=== PATIENT | male | born 1955 | race Caucasian/White ===

== ENCOUNTER 2016-06-21 00:48 | Emergency (ER) | payer OTHER ==
[2016-06-21] MEDS ORDERED: LIDOCAINE 2% MDV 20 ML VIAL As Ordered ONE (01:13)
[2016-06-21] MEDS ORDERED: AUGMENTIN 875 MG TAB As Ordered ONE (01:13)
[2016-06-21] MEDS ORDERED: POLYSPORIN TOPICAL OINTMENT 15GM As Ordered ONE (01:36)
--- NOTE | 2016-06-21 01:56 | EDDOCDS ---
Nurse's Notes [facility] Name: Jayme Roman Age: 60 yrs Sex: Male : 1955 Arrival Date: 06/21/2016 Time: 00:48 Bed I3 / M3 Private MD: Diagnosis: Laceration without foreign body of left thumb without damage to nail Presentation: 06/21 00:52 Presenting complaint: Patient states: laceration to outer aspect of left thumb from lf1 carbide fly-cutter on a [employer] at work. Injury sustained at 0020 this morning at [employer]. Bleeding controlled on scene with direct pressure. Adult Sepsis Screening: The patient does not have new or worsening altered mentation. Patient's respiratory rate is less than 22. Systolic blood pressure is greater than 100. Patient has a qSOFA score of 0- Negative Sepsis Screen. Suicide/Homicide risk assessment- the patient denies having any suicidal and/or homicidal ideations and does not present with any other emotional, behavioral or mental health complaints. Status: Patient is not a director of family service center or dependent. Transition of care: patient was not received from another setting of care. 00:52 Acuity: RITO Level 4 1 00:52 Method Of Arrival: [facility] 00:57 Presenting complaint: Patient states: Pt is on blood thinners. 1 Triage Assessment: 00:57 General: Appears in no apparent distress, Behavior is cooperative. Pain: Location: lf1 palmar aspect of distal phalanx of left thumb and palmar aspect of proximal phalanx of left thumb Pain currently is 8 out of 10 on a pain scale. HIV screening NA for this visit Offered previously. Neurological: Level of Consciousness is awake, alert, Oriented to person, place, time. EENT: No deficits noted. Respiratory: No deficits noted. GI: Denies nausea, vomiting. Derm: laceration to left thumb. Musculoskeletal: No deficits noted. Injury Description: Laceration sustained to palmar aspect of distal phalanx of left thumb and palmar aspect of proximal phalanx of left thumb is clean, 2.6 to 7.5 cm long, not bleeding, was sustained 30-60 minutes ago. is bleeding no active bleeding noted. Historical: - Allergies: IVP dye; - Home Meds: 1. clopidogrel 75 mg oral tab 1 tab once daily (Last dose: 06/20/2016 11:30) 2. gabapentin 300 mg Oral cap 1 cap 3 times per day Takes 1-2 caps 3 times daily as directed 3. glipizide 2.5 mg Oral tr24 1 tabs once daily 4. lansoprazole 30 mg oral cpDR 1 cap once daily 5. lisinopril 20 mg Oral tab 1 tab once daily Takes 1/2 to 1 tablet once daily 6. metformin 500 mg Oral Tb24 2 tabs 2 times per day 7. spironolacton-hydrochlorothiaz 25-25 mg Oral tab 1 tab once daily - PMHx: CAD; Diabetes - NIDDM: controlled; GERD; - PSHx: Stents, Coronary; Carotid surgery; - Social history: Smoking status: Patient states former smoker of tobacco. No barriers to communication noted, The patient speaks fluent Cameroonian, Speaks appropriately for age, Preferred Language: Cameroonian. - Family history: No immediate family members are acutely ill. - : The pt / caregiver states he / she is on anticoagulants: Plavix. Home medication list is obtained from the patient. - Exposure Risk Screening:: None identified. Screenin:01 Screening information is obtained from the patient. Fall risk: No risks identified. lf1 Assistance ADL's: requires no assistance with activities of daily living. Abuse/DV Screen: The patient / caregiver reports he/she is: not in a situation that causes fear, pain or injury. Nutritional screening: On diabetic diet. Advance Directives: Currently, there is a health care proxy, Karely Roman (). There is no active DNR order. There is a living will. home support is adequate. Assessment: 01:16 General: Appears in no apparent distress. Pain: Location: palmar aspect of proximal nn1 phalanx of left thumb and palmar aspect of distal phalanx of left thumb. Neurological: Level of Consciousness is awake, alert, obeys commands. Respiratory: No deficits noted. GI: No deficits noted. Derm: Skin is pink, warm & dry. Laceration to thumb of left hand. Injury Description: Laceration sustained to dorsal aspect of distal phalanx of left thumb is bleeding moderately, is bleeding moderately. 01:18 General: Lidocaine to bedside. . nn1 01:54 General: Appears in no apparent distress, comfortable, Laceration repaired with 5 nn1 sutures, patient has no complaints. Understands discharge instructions to return for suture removal. . Musculoskeletal: Circulation, motion, and sensation intact Capillary refill < 3 seconds Range of motion intact in all extremities. Vital Signs: 00:57 BP 115 / 65; Pulse 78; Resp 18; Temp 98.2(O); Pulse Ox 96% on R/A; Weight 98.88 kg; lf1 Height 5 ft. 10 in. (177.80 cm) (R); Pain 8/10; 00:57 Body Mass Index 31.28 (98.88 kg, 177.80 cm) lf1 Vitals: 00:57 Log In Time: June 21, 2016 at 00:49. 1 ED Course: 00:49 Patient visited by Judy Grey Reg. hs2 00:49 Patient moved to Waiting hs2 00:55 Triage Initiated lf1 00:58 Tito Chi PA-C is PHCP. cc10 00:58 Daniel Helton MD is Attending Physician. cc10 01:02 Patient visited by Zehra Vance RN. lf1 01:03 Patient visited by Tito Chi PA-C. cc10 01:03 Patient visited by Tito Chi PA-C. cc10 01:03 Patient moved to I3 / M3 lf1 01:17 [facility] Payment Agreement was scanned into [employer] and attached to record. pm4 01:53 Assist provider with laceration repair using sutures, Performed by Tito Chi PA-C nn1 Set up tray. Dressed with 4X4s, Kerlix, Patient tolerated well. 5 sutures. 01:53 No IV's were initiated during this patient's visit. nn1 01:54 The patient / caregiver is instructed regarding the plan of care and ED course. nn1 Administered Medications: 01:15 Drug: Lidocaine 10 ml [lidocaine 20 mg/mL (2 %) injection solution (10 mL)] Route: nn1 Infiltration; 01:16 Drug: Amoxicillin-Clavulanate 1 tabs [amoxicillin 875 mg-potassium clavulanate 125 mg nn1 tablet (1 tabs)] Route: PO; Order Results: There are currently no results for this order. Outcome: 01:40 Discharge ordered by Provider. cc10 01:53 Discharge Assessment: Patient awake, alert and oriented x 3. No cognitive and/or nn1 functional deficits noted. Patient verbalized understanding of disposition instructions. patient administered narcotics - no. The following High Risk Discharge criteria are identified: None. Discharged to home ambulatory. Condition: stable Condition: improved. Prescriptions given X 1, Work note provided to patient. No special radiology studies were completed. Property :Personal belongings accompany Pt. 01:55 Patient left the ED. nn1 Signatures: Zehra Vance,RN RN lf1 Tito Chi PA-C PAKirby cc10 Karine JacobRN RN nn1 Judy Grey, Reg Reg hs2 Juwan Graves, Reg Reg pm4 MTDD
--- NOTE | 2016-06-21 01:56 | EDDOCDS ---
Physician Documentation [facility] Name: Jayme Roman Age: 60 yrs Sex: Male : 1955 Arrival Date: 06/21/2016 Time: 00:48 Bed I3 / M3 Private MD: Disposition: 06/21/16 01:40 Discharged to Home/Self Care. Impression: Laceration without foreign body of left thumb without damage to nail. - Condition is Stable. - Discharge Instructions: Sutured Wound Care. - Prescriptions for Augmentin 875- 125 mg Oral Tablet - take 1 tablet by ORAL route every 12 hours for 5 days; 10 tablet. - Medication Reconciliation, Local Pharmacy Hours, Work Release Form - 1 day form. - Follow up: Emergency Department; When: 10 - 14 days; Reason: Staple/Suture removal, Recheck today's complaints, Worsening of conditions, Continuance of care. - Problem is new. - Symptoms have improved. - Notes: Please keep laceration area clean and dry. 5 sutures were placed in your left thumb tonight. Return in 10 days for suture removal. Return sooner for any signs of infection. Historical: - Allergies: IVP dye; - Home Meds: 1. clopidogrel 75 mg oral tab 1 tab once daily (Last dose: 06/20/2016 11:30) 2. gabapentin 300 mg Oral cap 1 cap 3 times per day Takes 1-2 caps 3 times daily as directed 3. glipizide 2.5 mg Oral tr24 1 tabs once daily 4. lansoprazole 30 mg oral cpDR 1 cap once daily 5. lisinopril 20 mg Oral tab 1 tab once daily Takes 1/2 to 1 tablet once daily 6. metformin 500 mg Oral Tb24 2 tabs 2 times per day 7. spironolacton-hydrochlorothiaz 25-25 mg Oral tab 1 tab once daily - PMHx: CAD; Diabetes - NIDDM: controlled; GERD; - PSHx: Stents, Coronary; Carotid surgery; - Social history: Smoking status: Patient states former smoker of tobacco. No barriers to communication noted, The patient speaks fluent Central African, Speaks appropriately for age, Preferred Language: Central African. - Family history: No immediate family members are acutely ill. - : The pt / caregiver states he / she is on anticoagulants: Plavix. Home medication list is obtained from the patient. - Exposure Risk Screening:: None identified. Vital Signs: 06/21 00:57 BP 115 / 65; Pulse 78; Resp 18; Temp 98.2(O); Pulse Ox 96% on R/A; Weight 98.88 kg / lf1 217.99 lbs; Height 5 ft. 10 in. (177.80 cm) (R); Pain 8/10; 00:57 Body Mass Index 31.28 (98.88 kg, 177.80 cm) lf1 Procedures: 01:41 Laceration repair:. cc10 Laceration: 01:41 Wound Repair of 4cm ( 1.6in ) full thickness laceration to lateral aspect of left hand. cc10 Linear shaped.. Skin/tissue flap noted.. Distal neuro/vascular/tendon intact. Anesthesia: Local anesthetic administered with 3 mls of 2% lidocaine. Wound prep: Simple cleansing with betadine by provider, Wound irrigation with saline by provider, Wound explored extensively. Skin closed with 5 x 4-0 Nylon using Simple interrupted sutures. Dressed with Bacitracin, 4x4's, Kerlix. Patient tolerated well. MDM: 01:07 Amoxicillin-Clavulanate 875 mg 1 tabs PO once ordered. cc10 01:07 Lidocaine 20 mg/mL (2 %) 10 ml Infiltration once; to bedside ordered. cc10 01:14 Financial registration complete. pm4 01:17 [facility] Payment Agreement was scanned into [employer] and attached to record. pm4 Administered Medications: 01:15 Drug: Lidocaine 10 ml [lidocaine 20 mg/mL (2 %) injection solution (10 mL)] Route: nn1 Infiltration; 01:16 Drug: Amoxicillin-Clavulanate 1 tabs [amoxicillin 875 mg-potassium clavulanate 125 mg nn1 tablet (1 tabs)] Route: PO; Signatures: Zehra VanceRN RN lf1 Tito Chi PA-C PA-C cc10 Karine Jacob RN RN nn1 Juwan Graves, Reg Reg pm4 The chart was reviewed and I authenticate all verbal orders and agree with the evaluation and treatment provided.Attachments: 01:17 [facility] Payment Agreement pm4 MTDD
--- NOTE | 2016-06-23 02:56 | EDDOCDS ---
Nurse's Notes [facility] Name: Jayme Roman Age: 60 yrs Sex: Male : 1955 Arrival Date: 06/21/2016 Time: 00:48 Bed I3 / M3 Private MD: Diagnosis: Laceration without foreign body of left thumb without damage to nail Presentation: 06/21 00:52 Presenting complaint: Patient states: laceration to outer aspect of left thumb from lf1 carbide fly-cutter on a [place] [employer] at work. Injury sustained at 0020 this morning at [employer]. Bleeding controlled on scene with direct pressure. Adult Sepsis Screening: The patient does not have new or worsening altered mentation. Patient's respiratory rate is less than 22. Systolic blood pressure is greater than 100. Patient has a qSOFA score of 0- Negative Sepsis Screen. Suicide/Homicide risk assessment- the patient denies having any suicidal and/or homicidal ideations and does not present with any other emotional, behavioral or mental health complaints. 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 Transition of care: patient was not received from another setting of care. 00:52 Acuity: RITO Level 4 1 00:52 Method Of Arrival: Walkin/Carried/[facility]std [facility] 00:57 Presenting complaint: Patient states: Pt is on blood thinners. 1 Triage Assessment: 00:57 General: Appears in no apparent distress, Behavior is cooperative. Pain: Location: lf1 palmar aspect of distal phalanx of left thumb and palmar aspect of proximal phalanx of left thumb Pain currently is 8 out of 10 on a pain scale. HIV screening NA for this visit Offered previously. Neurological: Level of Consciousness is awake, alert, Oriented to person, place, time. EENT: No deficits noted. Respiratory: No deficits noted. GI: Denies nausea, vomiting. Derm: laceration to left thumb. Musculoskeletal: No deficits noted. Injury Description: Laceration sustained to palmar aspect of distal phalanx of left thumb and palmar aspect of proximal phalanx of left thumb is clean, 2.6 to 7.5 cm long, not bleeding, was sustained 30-60 minutes ago. is bleeding no active bleeding noted. Historical: - Allergies: IVP dye; - Home Meds: 1. clopidogrel 75 mg oral tab 1 tab once daily (Last dose: 06/20/2016 11:30) 2. gabapentin 300 mg Oral cap 1 cap 3 times per day Takes 1-2 caps 3 times daily as directed 3. glipizide 2.5 mg Oral tr24 1 tabs once daily 4. lansoprazole 30 mg oral cpDR 1 cap once daily 5. lisinopril 20 mg Oral tab 1 tab once daily Takes 1/2 to 1 tablet once daily 6. metformin 500 mg Oral Tb24 2 tabs 2 times per day 7. spironolacton-hydrochlorothiaz 25-25 mg Oral tab 1 tab once daily - PMHx: CAD; Diabetes - NIDDM: controlled; GERD; - PSHx: Stents, Coronary; Carotid surgery; - Social history: Smoking status: Patient states former smoker of tobacco. No barriers to communication noted, The patient speaks fluent Bruneian, Speaks appropriately for age, Preferred Language: Bruneian. - Family history: No immediate family members are acutely ill. - : The pt / caregiver states he / she is on anticoagulants: Plavix. Home medication list is obtained from the patient. - Exposure Risk Screening:: None identified. Screenin:01 Screening information is obtained from the patient. Fall risk: No risks identified. lf1 Assistance ADL's: requires no assistance with activities of daily living. Abuse/DV Screen: The patient / caregiver reports he/she is: not in a situation that causes fear, pain or injury. Nutritional screening: On diabetic diet. Advance Directives: Currently, there is a health care proxy, Karely Roman (). There is no active DNR order. There is a living will. home support is adequate. Assessment: 01:16 General: Appears in no apparent distress. Pain: Location: palmar aspect of proximal nn1 phalanx of left thumb and palmar aspect of distal phalanx of left thumb. Neurological: Level of Consciousness is awake, alert, obeys commands. Respiratory: No deficits noted. GI: No deficits noted. Derm: Skin is pink, warm & dry. Laceration to thumb of left hand. Injury Description: Laceration sustained to dorsal aspect of distal phalanx of left thumb is bleeding moderately, is bleeding moderately. 01:18 General: Lidocaine to bedside. . nn1 01:54 General: Appears in no apparent distress, comfortable, Laceration repaired with 5 nn1 sutures, patient has no complaints. Understands discharge instructions to return for suture removal. . Musculoskeletal: Circulation, motion, and sensation intact Capillary refill < 3 seconds Range of motion intact in all extremities. Vital Signs: 00:57 BP 115 / 65; Pulse 78; Resp 18; Temp 98.2(O); Pulse Ox 96% on R/A; Weight 98.88 kg; lf1 Height 5 ft. 10 in. (177.80 cm) (R); Pain 8/10; 00:57 Body Mass Index 31.28 (98.88 kg, 177.80 cm) lf1 Vitals: 00:57 Log In Time: June 21, 2016 at 00:49. lf1 ED Course: 00:49 Patient visited by Judy Grey Reg. hs2 00:49 Patient moved to Waiting hs2 00:55 Triage Initiated lf1 00:58 Tito Chi PA-C is PHCP. cc10 00:58 Daniel Helton MD is Attending Physician. cc10 01:02 Patient visited by Zehra Vance RN. lf1 01:03 Patient visited by Tito Chi PA-C. cc10 01:03 Patient visited by Tito Chi PA-C. cc10 01:03 Patient moved to I3 / M3 lf1 01:17 [facility] Payment Agreement was scanned into [employer] and attached to record. pm4 01:53 Assist provider with laceration repair using sutures, Performed by Tito Chi PA-C nn1 Set up tray. Dressed with 4X4s, Kerlix, Patient tolerated well. 5 sutures. 01:53 No IV's were initiated during this patient's visit. nn1 01:54 The patient / caregiver is instructed regarding the plan of care and ED course. nn1 02:19 T-Sheet-- Draft Copy was scanned into [employer] and attached to record. hs2 Administered Medications: 01:15 Drug: Lidocaine 10 ml [lidocaine 20 mg/mL (2 %) injection solution (10 mL)] Route: nn1 Infiltration; 01:16 Drug: Amoxicillin-Clavulanate 1 tabs [amoxicillin 875 mg-potassium clavulanate 125 mg nn1 tablet (1 tabs)] Route: PO; Order Results: There are currently no results for this order. Outcome: 01:40 Discharge ordered by Provider. cc10 01:53 Discharge Assessment: Patient awake, alert and oriented x 3. No cognitive and/or nn1 functional deficits noted. Patient verbalized understanding of disposition instructions. patient administered narcotics - no. The following High Risk Discharge criteria are identified: None. Discharged to home ambulatory. Condition: stable Condition: improved. Prescriptions given X 1, Work note provided to patient. No special radiology studies were completed. Property :Personal belongings accompany Pt. 01:55 Patient left the ED. nn1 Signatures: Zehra Vance,RN RN lf1 Tito Chi, PASuleimanC PA-C cc10 Karine JacobRN RN nn1 Judy Grey, Reg Reg hs2 Juwan Graves, Reg Reg pm4 Chart Complete MTDD
--- NOTE | 2016-06-23 02:56 | EDDOCDS ---
Physician Documentation [facility] Name: Jayme Roman Age: 60 yrs Sex: Male : 1955 Arrival Date: 06/21/2016 Time: 00:48 Bed I3 / M3 Private MD: Disposition: 06/21/16 01:40 Discharged to Home/Self Care. Impression: Laceration without foreign body of left thumb without damage to nail. - Condition is Stable. - Discharge Instructions: Sutured Wound Care. - Prescriptions for Augmentin 875- 125 mg Oral Tablet - take 1 tablet by ORAL route every 12 hours for 5 days; 10 tablet. - Medication Reconciliation, Local Pharmacy Hours, Work Release Form - 1 day form. - Follow up: Emergency Department; When: 10 - 14 days; Reason: Staple/Suture removal, Recheck today's complaints, Worsening of conditions, Continuance of care. - Problem is new. - Symptoms have improved. - Notes: Please keep laceration area clean and dry. 5 sutures were placed in your left thumb tonight. Return in 10 days for suture removal. Return sooner for any signs of infection. Historical: - Allergies: IVP dye; - Home Meds: 1. clopidogrel 75 mg oral tab 1 tab once daily (Last dose: 06/20/2016 11:30) 2. gabapentin 300 mg Oral cap 1 cap 3 times per day Takes 1-2 caps 3 times daily as directed 3. glipizide 2.5 mg Oral tr24 1 tabs once daily 4. lansoprazole 30 mg oral cpDR 1 cap once daily 5. lisinopril 20 mg Oral tab 1 tab once daily Takes 1/2 to 1 tablet once daily 6. metformin 500 mg Oral Tb24 2 tabs 2 times per day 7. spironolacton-hydrochlorothiaz 25-25 mg Oral tab 1 tab once daily - PMHx: CAD; Diabetes - NIDDM: controlled; GERD; - PSHx: Stents, Coronary; Carotid surgery; - Social history: Smoking status: Patient states former smoker of tobacco. No barriers to communication noted, The patient speaks fluent Tunisian, Speaks appropriately for age, Preferred Language: Tunisian. - Family history: No immediate family members are acutely ill. - : The pt / caregiver states he / she is on anticoagulants: Plavix. Home medication list is obtained from the patient. - Exposure Risk Screening:: None identified. Vital Signs: 06/21 00:57 BP 115 / 65; Pulse 78; Resp 18; Temp 98.2(O); Pulse Ox 96% on R/A; Weight 98.88 kg / lf1 217.99 lbs; Height 5 ft. 10 in. (177.80 cm) (R); Pain 8/10; 00:57 Body Mass Index 31.28 (98.88 kg, 177.80 cm) lf1 Procedures: 01:41 Laceration repair:. cc10 Laceration: 01:41 Wound Repair of 4cm ( 1.6in ) full thickness laceration to lateral aspect of left hand. cc10 Linear shaped.. Skin/tissue flap noted.. Distal neuro/vascular/tendon intact. Anesthesia: Local anesthetic administered with 3 mls of 2% lidocaine. Wound prep: Simple cleansing with betadine by provider, Wound irrigation with saline by provider, Wound explored extensively. Skin closed with 5 x 4-0 Nylon using Simple interrupted sutures. Dressed with Bacitracin, 4x4's, Kerlix. Patient tolerated well. MDM: 01:07 Amoxicillin-Clavulanate 875 mg 1 tabs PO once ordered. cc10 01:07 Lidocaine 20 mg/mL (2 %) 10 ml Infiltration once; to bedside ordered. cc10 01:14 Financial registration complete. pm4 01:17 [facility] Payment Agreement was scanned into [employer] and attached to record. pm4 02:19 T-Sheet-- Draft Copy was scanned into [employer] and attached to record. hs2 Administered Medications: 01:15 Drug: Lidocaine 10 ml [lidocaine 20 mg/mL (2 %) injection solution (10 mL)] Route: nn1 Infiltration; 01:16 Drug: Amoxicillin-Clavulanate 1 tabs [amoxicillin 875 mg-potassium clavulanate 125 mg nn1 tablet (1 tabs)] Route: PO; Signatures: Zehra Vance RN RN lf1 Tito Chi PA-C PA-C cc10 Karine Jacob RN RN nn1 Judy Grey, Reg Reg hs2 Juwan Graves, Reg Reg pm4 The chart was reviewed and I authenticate all verbal orders and agree with the evaluation and treatment provided.Attachments: 01:17 [facility] Payment Agreement pm4 02:19 T-Sheet-- Draft Copy hs2 Chart Complete MTDD
--- NOTE | 2016-06-23 02:56 | EDDOCDS ---
Physician Documentation [facility] Name: Jayme Roman Age: 60 yrs Sex: Male : 1955 Arrival Date: 06/21/2016 Time: 00:48 Bed I3 / M3 Private MD: Disposition: 06/21/16 01:40 Discharged to Home/Self Care. Impression: Laceration without foreign body of left thumb without damage to nail. - Condition is Stable. - Discharge Instructions: Sutured Wound Care. - Prescriptions for Augmentin 875- 125 mg Oral Tablet - take 1 tablet by ORAL route every 12 hours for 5 days; 10 tablet. - Medication Reconciliation, Local Pharmacy Hours, Work Release Form - 1 day form. - Follow up: Emergency Department; When: 10 - 14 days; Reason: Staple/Suture removal, Recheck today's complaints, Worsening of conditions, Continuance of care. - Problem is new. - Symptoms have improved. - Notes: Please keep laceration area clean and dry. 5 sutures were placed in your left thumb tonight. Return in 10 days for suture removal. Return sooner for any signs of infection. Historical: - Allergies: IVP dye; - Home Meds: 1. clopidogrel 75 mg oral tab 1 tab once daily (Last dose: 06/20/2016 11:30) 2. gabapentin 300 mg Oral cap 1 cap 3 times per day Takes 1-2 caps 3 times daily as directed 3. glipizide 2.5 mg Oral tr24 1 tabs once daily 4. lansoprazole 30 mg oral cpDR 1 cap once daily 5. lisinopril 20 mg Oral tab 1 tab once daily Takes 1/2 to 1 tablet once daily 6. metformin 500 mg Oral Tb24 2 tabs 2 times per day 7. spironolacton-hydrochlorothiaz 25-25 mg Oral tab 1 tab once daily - PMHx: CAD; Diabetes - NIDDM: controlled; GERD; - PSHx: Stents, Coronary; Carotid surgery; - Social history: Smoking status: Patient states former smoker of tobacco. No barriers to communication noted, The patient speaks fluent Nigerian, Speaks appropriately for age, Preferred Language: Nigerian. - Family history: No immediate family members are acutely ill. - : The pt / caregiver states he / she is on anticoagulants: Plavix. Home medication list is obtained from the patient. - Exposure Risk Screening:: None identified. Vital Signs: 06/21 00:57 BP 115 / 65; Pulse 78; Resp 18; Temp 98.2(O); Pulse Ox 96% on R/A; Weight 98.88 kg / lf1 217.99 lbs; Height 5 ft. 10 in. (177.80 cm) (R); Pain 8/10; 00:57 Body Mass Index 31.28 (98.88 kg, 177.80 cm) lf1 Procedures: 01:41 Laceration repair:. cc10 Laceration: 01:41 Wound Repair of 4cm ( 1.6in ) full thickness laceration to lateral aspect of left hand. cc10 Linear shaped.. Skin/tissue flap noted.. Distal neuro/vascular/tendon intact. Anesthesia: Local anesthetic administered with 3 mls of 2% lidocaine. Wound prep: Simple cleansing with betadine by provider, Wound irrigation with saline by provider, Wound explored extensively. Skin closed with 5 x 4-0 Nylon using Simple interrupted sutures. Dressed with Bacitracin, 4x4's, Kerlix. Patient tolerated well. MDM: 01:07 Amoxicillin-Clavulanate 875 mg 1 tabs PO once ordered. cc10 01:07 Lidocaine 20 mg/mL (2 %) 10 ml Infiltration once; to bedside ordered. cc10 01:14 Financial registration complete. pm4 01:17 [facility] Payment Agreement was scanned into [employer] and attached to record. pm4 02:19 T-Sheet-- Draft Copy was scanned into [employer] and attached to record. hs2 Administered Medications: 01:15 Drug: Lidocaine 10 ml [lidocaine 20 mg/mL (2 %) injection solution (10 mL)] Route: nn1 Infiltration; 01:16 Drug: Amoxicillin-Clavulanate 1 tabs [amoxicillin 875 mg-potassium clavulanate 125 mg nn1 tablet (1 tabs)] Route: PO; Signatures: Zehra Vance RN RN lf1 Tito Chi PA-C PA-C cc10 Karine Jacob RN RN nn1 Judy Grey, Reg Reg hs2 Juwan Graves, Reg Reg pm4 The chart was reviewed and I authenticate all verbal orders and agree with the evaluation and treatment provided.Attachments: 01:17 [facility] Payment Agreement pm4 02:19 T-Sheet-- Draft Copy hs2 Chart Complete MTDD
== END 2016-06-21 01:55 | disposition home or self-care (01) ==
LOC: M ED 00:48
DX: S61.012A Laceration without foreign body of left thumb without damage to nail, initial encounter (principal); W31.9XXA Contact with unspecified machinery, initial encounter; Y92.63 Factory as the place of occurrence of the external cause; Y93.89 Activity, other specified; Y99.0 Civilian activity done for income or pay; E11.9 Type 2 diabetes mellitus without complications; I10 Essential (primary) hypertension; I25.2 Old myocardial infarction; K21.9 Gastro-esophageal reflux disease without esophagitis; Z79.899 Other long term (current) drug therapy; Z79.84 Long term (current) use of oral hypoglycemic drugs; Z91.041 Radiographic dye allergy status; Z79.01 Long term (current) use of anticoagulants; Z87.891 Personal history of nicotine dependence

== ENCOUNTER → 2016-06-22 | Outpatient (REF) | payer OTHER ==
[2016-06-22 14:07] LABS: ALBUMIN/GLOBULIN RATIO 1.14 (1.00-1.93); ALKALINE PHOSPHATASE 85 U/L (45-117); ALT/SGPT 31 U/L (12-78); ANION GAP 9 MEQ/L (8-16); AST/SGOT 14 U/L (15-37); BILIRUBIN,TOTAL 0.3 MG/DL (0.2-1.0); BLOOD UREA NITROGEN 26 MG/DL (7-18); CALCIUM LEVEL 9.1 MG/DL (8.5-10.1); CARBON DIOXIDE LEVEL 25 MEQ/L (21-32); CHLORIDE LEVEL 109 MEQ/L (98-107); CHOLESTEROL LEVEL 248 MG/DL (<200); CREATININE FOR GFR 1.01 MG/DL (0.70-1.30); GLOMERULAR FILTRATION RATE > 60.0 (>56); GLUCOSE, FASTING 81 MG/DL (70-105); POTASSIUM SERUM 4.6 MEQ/L (3.5-5.1); SODIUM LEVEL 143 MEQ/L (136-145); TOTAL PROTEIN 7.5 GM/DL (6.4-8.2); TRIGLYCERIDES LEVEL 347 MG/DL (<150)
== END ==
LOC: M SFHCPLAZ 12:12
PROVIDERS: ATTEND Family Medicine
DX: I10 Essential (primary) hypertension (principal); E11.9 Type 2 diabetes mellitus without complications; S06.9X9S Unspecified intracranial injury with loss of consciousness of unspecified duration, sequela; E78.5 Hyperlipidemia, unspecified; X58.XXXS Exposure to other specified factors, sequela; Y92.89 Other specified places as the place of occurrence of the external cause; Y93.89 Activity, other specified; Y99.8 Other external cause status

== ENCOUNTER → 2016-07-12 | Outpatient (REF) | payer OTHER | LOC: M LAB REF 08:52 | PROVIDERS: ATTEND Physician Assistant | DX: N39.0 Urinary tract infection, site not specified (principal) ==

== ENCOUNTER → 2016-07-24 | Outpatient (REF) | payer OTHER | LOC: M SFHCPLAZ 12:06 | PROVIDERS: ATTEND Family Medicine | DX: R10.2 Pelvic and perineal pain (principal) ==

== ENCOUNTER → 2016-08-24 | Outpatient (REF) | payer OTHER ==
[2016-08-24 18:39] LABS: BASO % 0.4 % (0.0-1.0); EOS # 0.2 K/mm3 (0.0-0.50); EOS % 2.4 % (0.0-3.0); LARGE UNSTAINED CELL # 0.1 K/mm3 (0.0-0.4); LARGE UNSTAINED CELL % 1.2 % (0.0-4.0); LYMPH # 1.4 K/mm3 (1.5-4.5); LYMPH % 17.5 % (24.0-44.0); MEAN CORPUSCULAR HGB CONC 33.3 g/dl (32.0-36.5); MEAN CORPUSCULAR VOLUME 96.1 fl (80.0-96.0); MONO # 0.6 K/mm3 (0.0-0.8); MONO % 7.4 % (0.0-5.0); NEUTROPHILS # 5.4 K/mm3 (1.8-7.7); NEUTROPHILS % 71.1 % (36.0-66.0); PLATELET COUNT, AUTOMATED 213 k/mm3 (150-450); RED CELL DISTRIBUTION WIDTH 13.5 % (11.5-14.5); WHITE BLOOD COUNT 7.6 K/mm3 (4.0-10.0)
== END ==
LOC: M SFHCPLAZ 15:21
PROVIDERS: ATTEND Family Medicine
DX: M10.9 Gout, unspecified (principal)

== ENCOUNTER → 2016-08-28 | Outpatient (CLI) | payer OTHER ==
--- NOTE | 2016-08-28 12:47 | REP ---
Left foot four views: There are no comparisons. 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 There is soft tissue edema adjacent to the great toe MTP articulation. Mineralization and joint spaces are otherwise unremarkable. There is a calcaneal plantar spur. There are no other calcifications or foreign bodies. Signed by Gavino Wellington MD 08/28/2016 12:38 P
== END ==
LOC: M ADAMS 11:23
PROVIDERS: ATTEND Family Medicine
DX: M10.9 Gout, unspecified (principal)

== ENCOUNTER → 2016-09-27 | Outpatient (REF) | payer OTHER ==
[2016-09-27 16:27] LABS: ANION GAP 6 MEQ/L (8-16); BLOOD UREA NITROGEN 18 MG/DL (7-18); CALCIUM LEVEL 8.7 MG/DL (8.5-10.1); CARBON DIOXIDE LEVEL 26 MEQ/L (21-32); CHLORIDE LEVEL 109 MEQ/L (98-107); CREATININE FOR GFR 1.03 MG/DL (0.70-1.30); GLOMERULAR FILTRATION RATE > 60.0 (>56); GLUCOSE, FASTING 161 MG/DL (70-105); POTASSIUM SERUM 4.4 MEQ/L (3.5-5.1); SODIUM LEVEL 141 MEQ/L (136-145)
[2016-09-29 11:19] LABS: HEP C VIRUS AB SCREEN MEDICARE 0.1 INDEX (<0.8)
== END ==
LOC: M SFHCPLAZ 13:48
PROVIDERS: ATTEND Family Medicine
DX: E11.9 Type 2 diabetes mellitus without complications (principal); I10 Essential (primary) hypertension; M10.9 Gout, unspecified; Z11.59 Encounter for screening for other viral diseases
CPT/HCPCS: 36415; 80048; 83036; 84550; G0472

== ENCOUNTER → 2016-10-09 | Outpatient (REF) | payer OTHER | LOC: M LABDRAW1 13:18 → M LABDRAWP 13:18 | PROVIDERS: ATTEND Urology | DX: R97.20 Elevated prostate specific antigen [PSA] (principal) ==

== ENCOUNTER → 2017-02-21 | Outpatient (CLI) | payer OTHER ==
[2017-02-21 20:39] LABS: BASO % 0.3 % (0.0-1.0); EOS % 0.3 % (0.0-3.0); IMMATURE GRANULOCYTE % 0.7 % (0-0); LYMPH % 13.4 % (24.0-44.0); MEAN CORPUSCULAR HEMOGLOBIN 32.4 pg (27.0-33.0); MEAN CORPUSCULAR HGB CONC 33.5 g/dl (32.0-36.5); MEAN CORPUSCULAR VOLUME 96.8 fl (80.0-96.0); MONO # 1.1 10^3/uL (0.0-0.8); MONO % 15.1 % (0.0-5.0); NEUTROPHILS # 5.1 10^3/uL (1.8-7.7); NEUTROPHILS % 70.2 % (36.0-66.0); PLATELET COUNT, AUTOMATED 143 10^3/uL (150-450); RED CELL DISTRIBUTION WIDTH 13.4 % (11.5-14.5); WHITE BLOOD COUNT 7.2 10^3/uL (4.0-10.0)
[2017-02-21 21:12] LABS: ADD MORPHOLOGY? NO
--- NOTE | 2017-02-22 07:17 | REP ---
Clinical: Acute bronchitis . Comparison: 04/20/2008 . Technique: PA and lateral. Findings: The mediastinum and cardiac silhouette are normal. The lung merino demonstrate increased coarsened markings likely chronic in nature without acute consolidation, effusion, or pneumothorax. The skeletal structures are intact and normal. Impression: 1. Chronic increased coarsened interstitial markings. 2. No focal consolidation. Signed by Jose Eduardo Ogden MD 02/22/2017 07:09 A
== END ==
LOC: M ADAMS 16:22
PROVIDERS: ATTEND Physician Assistant Medical
DX: J20.9 Acute bronchitis, unspecified (principal)

== ENCOUNTER → 2017-04-30 | Outpatient (REF) | payer OTHER | LOC: M LABDRAWP 15:30 | PROVIDERS: ATTEND Urology | DX: R97.20 Elevated prostate specific antigen [PSA] (principal) ==

== ENCOUNTER → 2017-05-14 | Outpatient (REF) | payer OTHER ==
[2017-05-14 18:53] LABS: ANION GAP 9 MEQ/L (8-16); BLOOD UREA NITROGEN 30 MG/DL (7-18); CALCIUM LEVEL 9.9 MG/DL (8.8-10.2); CARBON DIOXIDE LEVEL 25 MEQ/L (21-32); CHLORIDE LEVEL 104 MEQ/L (98-107); CREATININE FOR GFR 1.02 MG/DL (0.70-1.30); GLOMERULAR FILTRATION RATE > 60.0 (>49); GLUCOSE, FASTING 127 MG/DL (80-110); SODIUM LEVEL 138 MEQ/L (136-145)
== END ==
LOC: M SFHCPLAZ 14:41
PROVIDERS: ATTEND Family Medicine
DX: E11.9 Type 2 diabetes mellitus without complications (principal); I10 Essential (primary) hypertension

== ENCOUNTER 2017-08-10 22:48 | Emergency (ER) | payer OTHER | END 2017-08-10 23:49 | disposition home or self-care (01) | LOC: M ED 22:48 | DX: S61.001A Unspecified open wound of right thumb without damage to nail, initial encounter (principal); W45.8XXA Other foreign body or object entering through skin, initial encounter; Y92.59 Other trade areas as the place of occurrence of the external cause; Y99.0 Civilian activity done for income or pay; Z79.01 Long term (current) use of anticoagulants; Z79.899 Other long term (current) drug therapy; Z79.84 Long term (current) use of oral hypoglycemic drugs; Z87.891 Personal history of nicotine dependence; Z91.041 Radiographic dye allergy status | CPT/HCPCS: 99283 ==

== ENCOUNTER → 2017-12-03 | Outpatient (REF) | payer OTHER ==
[2017-12-03 12:53] LABS: CHOLESTEROL LEVEL 225 MG/DL (<200); HDL CHOLESTEROL 36 MG/DL (>40); LDL CHOLESTEROL 132.8 MG/DL (<100); NON-HDL-C 189 MG/DL; TRIGLYCERIDES LEVEL 281 MG/DL (<150)
[2017-12-03 13:11] LABS: MALB URINE SIEMENS 17.2 MG/L; MAU/CREAT RATIO 11.3 MCG/MG (0.0-30.0)
[2017-12-03 13:35] LABS: ESTIMATED AVERAGE GLUCOSE 157 MG/DL (60-110); HEMOGLOBIN A1c 7.1 %
== END ==
LOC: M SFHCPLAZ 07:50
DX: E11.9 Type 2 diabetes mellitus without complications (principal); E78.5 Hyperlipidemia, unspecified

== ENCOUNTER → 2018-01-09 | Outpatient (REF) | payer OTHER ==
[2018-01-09 13:03] LABS: ANION GAP 11 MEQ/L (8-16); BLOOD UREA NITROGEN 29 MG/DL (7-18); CALCIUM LEVEL 9.2 MG/DL (8.8-10.2); CARBON DIOXIDE LEVEL 23 MEQ/L (21-32); CHLORIDE LEVEL 108 MEQ/L (98-107); CREATININE FOR GFR 1.07 MG/DL (0.70-1.30); GLOMERULAR FILTRATION RATE > 60.0 (>49); GLUCOSE, FASTING 122 MG/DL (70-100); POTASSIUM SERUM 4.5 MEQ/L (3.5-5.1); SODIUM LEVEL 142 MEQ/L (136-145)
== END ==
LOC: M SFHCADAM 10:34
DX: I10 Essential (primary) hypertension (principal)

== ENCOUNTER → 2018-01-14 | Outpatient (CLI) | payer OTHER ==
[~2018-01-14] MED LIST: PROHANCE 279.3MG/ML 15ML VIAL (A9576) As Ordered; PROHANCE 279.3MG/ML 5ML VIAL (A9576) As Ordered
== END ==
LOC: M RAD 14:26
DX: R42 Dizziness and giddiness (principal); I67.82 Cerebral ischemia
CPT/HCPCS: A9576

== ENCOUNTER 2018-04-22 07:23 | Day surgery (SDC) | payer OTHER ==
[~2018-04-22 07:23] MED LIST changes: +LIDOCAINE 2% INJ 100 MG/5 ML SDV (FOR ANES.) As Ordered; -PROHANCE 279.3MG/ML 15ML VIAL (A9576) As Ordered; -PROHANCE 279.3MG/ML 5ML VIAL (A9576) As Ordered; +PROPOFOL 200 MG/20 ML VIAL As Ordered
[2018-04-22] MEDS: NS 1,000 ML IV (07:41)
[2018-04-22] MEDS ORDERED: PROPOFOL 200 MG/20 ML VIAL As Ordered (09:19)
== END 2018-04-22 10:04 | disposition home or self-care (01) ==
LOC: M OPP 07:23
DX: Z12.11 Encounter for screening for malignant neoplasm of colon (principal); K64.0 First degree hemorrhoids; K57.30 Diverticulosis of large intestine without perforation or abscess without bleeding; R19.7 Diarrhea, unspecified; R12 Heartburn; K22.8 Other specified diseases of esophagus; I10 Essential (primary) hypertension; I25.10 Atherosclerotic heart disease of native coronary artery without angina pectoris; I65.29 Occlusion and stenosis of unspecified carotid artery; F33.9 Major depressive disorder, recurrent, unspecified; F41.9 Anxiety disorder, unspecified; M19.90 Unspecified osteoarthritis, unspecified site; Z86.010 Personal history of colon polyps; Z79.84 Long term (current) use of oral hypoglycemic drugs; Z79.899 Other long term (current) drug therapy; Z86.19 Personal history of other infectious and parasitic diseases; Z91.041 Radiographic dye allergy status; Z86.73 Personal history of transient ischemic attack (TIA), and cerebral infarction without residual deficits
CPT/HCPCS: 45380

== ENCOUNTER → 2018-06-11 | Outpatient (REF) | payer OTHER ==
[~2018-06-11] MED LIST changes: +ALLE180T33 PO; +ALLO100T; +BACI500O8 TOP; +CLOP75TA2; +FENASTERIDE PO; +GABA-843; +GLIP-163; +GLIP2.5T6; +LANS30CA; -LIDOCAINE 2% INJ 100 MG/5 ML SDV (FOR ANES.) As Ordered; +LISI-672; +METF500T4; +PRAV40TA2 PO; -PROPOFOL 200 MG/20 ML VIAL As Ordered; +SERT-138; +TAMSULOSIN
[2018-06-11 15:49] LABS: HEMATOCRIT 40.6 % (42.0-52.0); HEMOGLOBIN 13.5 g/dl (13.5-17.5); MEAN CORPUSCULAR HEMOGLOBIN 31.5 pg (27.0-33.0); MEAN CORPUSCULAR HGB CONC 33.3 g/dl (32.0-36.5); MEAN CORPUSCULAR VOLUME 94.6 fl (80.0-96.0); PLATELET COUNT, AUTOMATED 187 10^3/uL (150-450); RED BLOOD COUNT 4.29 10^6/uL (4.30-6.10)
[2018-06-11 16:14] LABS: HEMOGLOBIN A1c 6.7 %
[2018-06-11 16:26] LABS: ALBUMIN 4.1 GM/DL (3.2-5.2); ALT/SGPT 36 U/L (12-78); BILIRUBIN,TOTAL 0.5 MG/DL (0.2-1.0); BLOOD UREA NITROGEN 29 MG/DL (7-18); CALCIUM LEVEL 9.1 MG/DL (8.8-10.2); CARBON DIOXIDE LEVEL 24 MEQ/L (21-32); CHLORIDE LEVEL 106 MEQ/L (98-107); CREATININE FOR GFR 1.06 MG/DL (0.70-1.30); GLOMERULAR FILTRATION RATE > 60.0 (>49); GLUCOSE, FASTING 93 MG/DL (70-100); POTASSIUM SERUM 4.4 MEQ/L (3.5-5.1); SODIUM LEVEL 141 MEQ/L (136-145); THYROID STIMULATING HORMONE 0.598 uIU/ML (0.358-3.740); TOTAL PROTEIN 7.5 GM/DL (6.4-8.2)
[2018-06-11 16:54] LABS: TOTAL 25(OH) VITAMIN D 19.1 NG/ML (30.0-100.0)
== END ==
LOC: M SFHCPLAZ 14:34
PROVIDERS: ATTEND Family Medicine
DX: R53.83 Other fatigue (principal); E11.9 Type 2 diabetes mellitus without complications; R19.7 Diarrhea, unspecified

== ENCOUNTER → 2018-07-22 | Outpatient (REF) | payer OTHER ==
[2018-07-22 16:40] LABS: BASO % 0.3 % (0.0-1.0); EOS # 0.1 10^3/uL (0.0-0.50); HEMATOCRIT 35.9 % (42.0-52.0); HEMOGLOBIN 12.4 g/dl (13.5-17.5); LYMPH # 1.5 10^3/uL (1.5-4.5); LYMPH % 23.2 % (24.0-44.0); MEAN CORPUSCULAR HEMOGLOBIN 32.5 pg (27.0-33.0); MEAN CORPUSCULAR HGB CONC 34.5 g/dl (32.0-36.5); MONO # 0.6 10^3/uL (0.0-0.8); MONO % 8.6 % (0.0-5.0); NEUTROPHILS # 4.4 10^3/uL (1.8-7.7); NEUTROPHILS % 65.4 % (36.0-66.0); PLATELET COUNT, AUTOMATED 177 10^3/uL (150-450); RED BLOOD COUNT 3.82 10^6/uL (4.30-6.10); WHITE BLOOD COUNT 6.7 10^3/uL (4.0-10.0)
[2018-07-22 17:03] LABS: ALT/SGPT 46 U/L (12-78); BILIRUBIN,TOTAL 0.3 MG/DL (0.2-1.0); BLOOD UREA NITROGEN 20 MG/DL (7-18); CALCIUM LEVEL 8.6 MG/DL (8.8-10.2); CARBON DIOXIDE LEVEL 23 MEQ/L (21-32); CHLORIDE LEVEL 111 MEQ/L (98-107); CREATININE FOR GFR 0.99 MG/DL (0.70-1.30); GLOMERULAR FILTRATION RATE > 60.0 (>49); GLUCOSE, FASTING 86 MG/DL (70-100); POTASSIUM SERUM 4.2 MEQ/L (3.5-5.1); SODIUM LEVEL 142 MEQ/L (136-145); TOTAL PROTEIN 7.1 GM/DL (6.4-8.2)
== END ==
LOC: M SFHCPLAZ 15:31
PROVIDERS: ATTEND Family Medicine
DX: R19.7 Diarrhea, unspecified (principal)

== ENCOUNTER → 2018-07-31 | Outpatient (REF) | payer OTHER | LOC: M SFHCPLAZ 16:02 | PROVIDERS: ATTEND Family Medicine | DX: R19.7 Diarrhea, unspecified (principal) ==

== ENCOUNTER 2018-08-23 11:29 | Emergency (ER) | payer OTHER ==
[~2018-08-23] VITALS: Ht 177.8 cm; Wt 103.9 kg
[2018-08-23] MEDS ORDERED: LIDOCAINE 2% MDV 20 ML VIAL SC ONE (13:00)
[2018-08-23 13:32] VITALS: BP 116/71
== END 2018-08-23 13:31 | disposition home or self-care (01) ==
LOC: M ED 11:29
DX: S61.213A Laceration without foreign body of left middle finger without damage to nail, initial encounter (principal); X58.XXXA Exposure to other specified factors, initial encounter; Y92.89 Other specified places as the place of occurrence of the external cause; Y93.9 Activity, unspecified; Y99.0 Civilian activity done for income or pay; I10 Essential (primary) hypertension; E78.5 Hyperlipidemia, unspecified; E11.9 Type 2 diabetes mellitus without complications; Z86.73 Personal history of transient ischemic attack (TIA), and cerebral infarction without residual deficits; K21.9 Gastro-esophageal reflux disease without esophagitis; Z87.442 Personal history of urinary calculi; Z79.84 Long term (current) use of oral hypoglycemic drugs; Z79.899 Other long term (current) drug therapy; Z91.041 Radiographic dye allergy status

== ENCOUNTER 2018-08-26 07:58 | Emergency (ER) | payer OTHER ==
[~2018-08-26] VITALS: Ht 177.8 cm; Wt 100.0 kg
[2018-08-26] MEDS ORDERED: TAMS1CAP17 (08:09)
[2018-08-26] MEDS ORDERED: FINA5TAB2 (08:09)
[2018-08-26] MEDS ORDERED: LISI10TA4 (08:09)
[2018-08-26 08:36] LABS: BASO % 0.5 % (0.0-1.0); EOS # 0.2 10^3/uL (0.0-0.50); EOS % 1.9 % (0.0-3.0); HEMATOCRIT 39.6 % (42.0-52.0); HEMOGLOBIN 13.4 g/dl (13.5-17.5); LYMPH # 1.6 10^3/uL (1.5-4.5); LYMPH % 20.4 % (24.0-44.0); MEAN CORPUSCULAR HEMOGLOBIN 32.1 pg (27.0-33.0); MEAN CORPUSCULAR HGB CONC 33.8 g/dl (32.0-36.5); MONO # 0.6 10^3/uL (0.0-0.8); NEUTROPHILS # 5.3 10^3/uL (1.8-7.7); NEUTROPHILS % 68.7 % (36.0-66.0); PLATELET COUNT, AUTOMATED 152 10^3/uL (150-450); RED BLOOD COUNT 4.17 10^6/uL (4.30-6.10); WHITE BLOOD COUNT 7.7 10^3/uL (4.0-10.0)
[2018-08-26 08:56] LABS: ERYTHROCYTE SEDIMENTATION RATE 19 mm/hr (0-20)
--- NOTE | 2018-08-26 08:58 | REP ---
LEFT HAND, FOUR VIEWS: Four views left hand performed. There is no acute fracture or dislocation. There is moderately severe joint space narrowing with subchondral sclerosis and spurring at the second and third metacarpophalangeal joints. There is spurring at the bases of second and third distal phalanges. A few tiny metallic densities are seen in the soft tissues of the hand specifically between the first and second metacarpals with another more medially. Electronically Signed by Gavino Smith MD 08/26/2018 12:43 P
[2018-08-26 10:18] LABS: BLOOD UREA NITROGEN 23 MG/DL (7-18); C REACTIVE PROTEIN QUANTITATIV 2.11 MG/DL (0.00-0.30); CALCIUM LEVEL 8.6 MG/DL (8.8-10.2); CARBON DIOXIDE LEVEL 22 MEQ/L (21-32); CHLORIDE LEVEL 109 MEQ/L (98-107); GLOMERULAR FILTRATION RATE > 60.0 (>49); GLUCOSE, FASTING 158 MG/DL (70-100); POTASSIUM SERUM 4.6 MEQ/L (3.5-5.1); SODIUM LEVEL 140 MEQ/L (136-145)
[2018-08-26] MEDS ORDERED: DALBAVANCIN 1,500 MG in D5W 250 ML IV SCH (15:00)
[2018-08-26 16:17] VITALS: BP 140/85
== END 2018-08-26 16:18 | disposition home or self-care (01) ==
LOC: M ED 07:58
DX: L03.012 Cellulitis of left finger (principal); E11.9 Type 2 diabetes mellitus without complications; I10 Essential (primary) hypertension; E78.5 Hyperlipidemia, unspecified; Z86.73 Personal history of transient ischemic attack (TIA), and cerebral infarction without residual deficits; Z79.84 Long term (current) use of oral hypoglycemic drugs; Z79.899 Other long term (current) drug therapy; Z91.041 Radiographic dye allergy status
CPT/HCPCS: 36415; 73130; 80048; 85025; 85652; 86140; 87040; 96365; 99284; J0875

== ENCOUNTER → 2018-10-08 | Outpatient (REF) | payer OTHER ==
[~2018-10-08] MED LIST changes: +FINA5TAB2; +LISI10TA4; +TAMS1CAP17
[2018-10-08 10:25] LABS: ALBUMIN 3.9 GM/DL (3.2-5.2); ALT/SGPT 35 U/L (12-78); BILIRUBIN,TOTAL 0.2 MG/DL (0.2-1.0); BLOOD UREA NITROGEN 21 MG/DL (7-18); CARBON DIOXIDE LEVEL 23 MEQ/L (21-32); CHLORIDE LEVEL 113 MEQ/L (98-107); CREATININE FOR GFR 0.96 MG/DL (0.70-1.30); GLOMERULAR FILTRATION RATE > 60.0 (>49); GLUCOSE, FASTING 135 MG/DL (70-100); POTASSIUM SERUM 4.6 MEQ/L (3.5-5.1); SODIUM LEVEL 143 MEQ/L (136-145)
[2018-10-08 10:38] LABS: BASO % 0.6 % (0.0-1.0); EOS # 0.1 10^3/uL (0.0-0.50); HEMOGLOBIN 12.7 g/dl (13.5-17.5); LYMPH # 1.6 10^3/uL (1.5-4.5); LYMPH % 24.5 % (24.0-44.0); MEAN CORPUSCULAR HEMOGLOBIN 31.4 pg (27.0-33.0); MEAN CORPUSCULAR HGB CONC 32.6 g/dl (32.0-36.5); MEAN CORPUSCULAR VOLUME 96.3 fl (80.0-96.0); MONO # 0.6 10^3/uL (0.0-0.8); MONO % 9.7 % (0.0-5.0); NEUTROPHILS # 4.1 10^3/uL (1.8-7.7); NEUTROPHILS % 62.7 % (36.0-66.0); PLATELET COUNT, AUTOMATED 177 10^3/uL (150-450); RED BLOOD COUNT 4.05 10^6/uL (4.30-6.10); WHITE BLOOD COUNT 6.5 10^3/uL (4.0-10.0)
[2018-10-08 13:06] LABS: HEMOGLOBIN A1c 6.4 %
== END ==
LOC: M SFHCPLAZ 07:44
PROVIDERS: ATTEND Family Medicine
DX: A04.72 Enterocolitis due to Clostridium difficile, not specified as recurrent (principal); E11.9 Type 2 diabetes mellitus without complications

== ENCOUNTER → 2018-10-15 | Outpatient (CLI) | payer OTHER ==
--- NOTE | 2018-10-17 08:23 | REP ---
Clinical: Left lower abdominal pain. Technique: Axial noncontrast images from the lung bases to the pubic symphysis coronal and sagittal re-formations. Comparison: 02/14/2010. Findings: Lung bases are clear. Visualized heart and pericardium normal. Liver, spleen, pancreas, gallbladder, bilateral adrenal glands and kidneys are normal for noncontrast evaluation. Mild chronic symmetric perinephric stranding is appreciated without hydronephrosis or nephrolithiasis. The enteric system is without obstruction or acute inflammatory process. Scattered colonic diverticula noted without acute diverticulitis. Normal terminal ileum and appendix identified in the right lower quadrant. Pelvis demonstrates normal bladder and age appropriate prostate/seminal vesicles. No ascites. No free air. No adenopathy. Abdominal aorta without aneurysm. Osseous structures demonstrate degenerative changes without focal abnormality. Impression: No acute abdominopelvic pathology appreciated. Electronically Signed by Jose Eduardo Ogden MD 10/17/2018 08:15 A
== END ==
LOC: M RAD 16:27
PROVIDERS: ATTEND Family Medicine
DX: R10.32 Left lower quadrant pain (principal)

== ENCOUNTER → 2019-05-14 | Outpatient (REF) | payer OTHER ==
[~2019-05-14] MED LIST changes: +METF-791; -METF500T4
[2019-05-14 15:28] LABS: BLOOD UREA NITROGEN 18 MG/DL (7-18); CALCIUM LEVEL 9.5 MG/DL (8.8-10.2); CARBON DIOXIDE LEVEL 25 MEQ/L (21-32); CHLORIDE LEVEL 107 MEQ/L (98-107); CREATININE FOR GFR 1.11 MG/DL (0.70-1.30); GLOMERULAR FILTRATION RATE > 60.0 (>49); GLUCOSE, FASTING 159 MG/DL (70-100); POTASSIUM SERUM 4.8 MEQ/L (3.5-5.1); SODIUM LEVEL 140 MEQ/L (136-145)
[2019-05-14 15:53] LABS: HEMOGLOBIN A1c 7.5 %
== END ==
LOC: M SFHCPLAZ 13:42
PROVIDERS: ATTEND Family Medicine
DX: E11.9 Type 2 diabetes mellitus without complications (principal); I10 Essential (primary) hypertension

== ENCOUNTER 2019-06-19 13:05 | Emergency (ER) | payer OTHER ==
[~2019-06-19] VITALS: Ht 177.8 cm; Wt 102.7 kg
[~2019-06-19 13:05] MED LIST changes: -CLOP75TA2; +CLOP75TA2 PO; -FINA5TAB2; +FINA5TAB2 PO; -LANS30CA; +LANS30CA PO; -LISI10TA4; +LISI10TA4 PO; -METF-791; +METF-791 PO; -SERT-138; +SERT-138 PO; -TAMS1CAP17; +TAMS1CAP17 PO
[2019-06-19] MEDS ORDERED: AMOX875T2 PO (13:14)
[2019-06-19] MEDS ORDERED: NS 500 ML IV ONE (14:30)
[2019-06-19] MEDS ORDERED: AMPICILLIN SOD/SULBACTAM SOD 3 GM in D5W MINI-BAG PLUS 100 ML IV ONE (14:30)
[2019-06-19 14:50] LABS: HEMATOCRIT 44.6 % (42.0-52.0); HEMOGLOBIN 14.2 g/dl (13.5-17.5); MEAN CORPUSCULAR HEMOGLOBIN 30.8 pg (27.0-33.0); MEAN CORPUSCULAR HGB CONC 31.8 g/dl (32.0-36.5); MEAN CORPUSCULAR VOLUME 96.7 fl (80.0-96.0); PLATELET COUNT, AUTOMATED 208 10^3/uL (150-450); RED BLOOD COUNT 4.61 10^6/uL (4.30-6.10)
[2019-06-19 15:12] LABS: ALBUMIN 3.9 GM/DL (3.2-5.2); ALT/SGPT 27 U/L (12-78); BILIRUBIN,DIRECT 0.1 MG/DL (0.0-0.2); BILIRUBIN,TOTAL 0.5 MG/DL (0.2-1.0); BLOOD UREA NITROGEN 25 MG/DL (7-18); CALCIUM LEVEL 9.6 MG/DL (8.8-10.2); CARBON DIOXIDE LEVEL 23 MEQ/L (21-32); CHLORIDE LEVEL 106 MEQ/L (98-107); CREATININE FOR GFR 1.02 MG/DL (0.70-1.30); GLOMERULAR FILTRATION RATE > 60.0 (>49); GLUCOSE, FASTING 187 MG/DL (70-100); POTASSIUM SERUM 4.3 MEQ/L (3.5-5.1); SODIUM LEVEL 136 MEQ/L (136-145); TOTAL PROTEIN 8.3 GM/DL (6.4-8.2)
[2019-06-19 16:04] VITALS: BP 145/85
[2019-06-20] MEDS ORDERED: JARD1TAB PO (14:33)
[2019-06-20] MEDS ORDERED: AUGM875T28 PO (14:51)
== END 2019-06-19 16:07 | disposition home or self-care (01) ==
LOC: M ED 13:05
DX: S51.851A Open bite of right forearm, initial encounter (principal); W55.01XA Bitten by cat, initial encounter; Y92.9 Unspecified place or not applicable; Y93.9 Activity, unspecified; Y99.9 Unspecified external cause status; I51.9 Heart disease, unspecified; E11.9 Type 2 diabetes mellitus without complications; I10 Essential (primary) hypertension; Z86.73 Personal history of transient ischemic attack (TIA), and cerebral infarction without residual deficits; Z87.891 Personal history of nicotine dependence; Z79.899 Other long term (current) drug therapy; Z91.040 Latex allergy status

== ENCOUNTER 2019-06-20 13:59 | Emergency (ER) | payer OTHER ==
[~2019-06-20] VITALS: Ht 177.8 cm; Wt 102.3 kg
[2019-06-20 13:59] VITALS: BP 123/72
[~2019-06-20 13:59] MED LIST changes: +AMOX875T2 PO
[2019-06-20] MEDS ORDERED: AMPICILLIN SOD/SULBACTAM SOD 3 GM in D5W MINI-BAG PLUS 100 ML IV ONE (14:15)
[2019-06-20] MEDS ORDERED: JARD1TAB PO (14:33)
[2019-06-20] MEDS ORDERED: AUGM875T28 PO (14:51)
== END 2019-06-20 15:12 | disposition home or self-care (01) ==
LOC: M ED 13:59
DX: L03.113 Cellulitis of right upper limb (principal); W55.01XA Bitten by cat, initial encounter; Y92.9 Unspecified place or not applicable; Y93.9 Activity, unspecified; Y99.9 Unspecified external cause status; I51.9 Heart disease, unspecified; I10 Essential (primary) hypertension; Z79.84 Long term (current) use of oral hypoglycemic drugs; Z79.899 Other long term (current) drug therapy; Z91.040 Latex allergy status

== ENCOUNTER 2019-06-21 14:52 | Emergency (ER) | payer OTHER ==
[~2019-06-21] VITALS: Ht 177.8 cm; Wt 103.2 kg
[~2019-06-21 14:52] MED LIST changes: +AUGM875T28 PO; +JARD1TAB PO
[2019-06-21] MEDS ORDERED: AMPICILLIN SOD/SULBACTAM SOD 3 GM in D5W MINI-BAG PLUS 100 ML IV ONE (15:30)
[2019-06-21 16:23] VITALS: BP 129/72
== END 2019-06-21 16:57 | disposition home or self-care (01) ==
LOC: M ED 14:52
DX: L03.113 Cellulitis of right upper limb (principal); W55.01XA Bitten by cat, initial encounter; Y92.099 Unspecified place in other non-institutional residence as the place of occurrence of the external cause; Y93.9 Activity, unspecified; Y99.9 Unspecified external cause status; Z79.899 Other long term (current) drug therapy; Z91.040 Latex allergy status

== ENCOUNTER → 2019-07-03 | Outpatient (CLI) | payer OTHER ==
--- NOTE | 2019-07-03 15:56 | REPPI ---
Right wrist four views: There is osteoarthritis in the MTP articulations of the hand. The carpal ossicles are unremarkable. There are no arthritic changes. No fracture or dislocation. Mineralization is normal. There are no calcifications. There is a small bone cyst in the distal radius. Impression: The osteoarthritis of the hand MTP articulations. The wrist is unremarkable. There is a small bone cyst in the distal radius. Electronically Signed by Gavino Wellington MD 07/03/2019 03:47 P
[2019-07-03 17:48] LABS: BASO # 0.1 10^3/uL (0.0-0.2); BASO % 0.7 % (0.0-1.0); EOS # 0.3 10^3/uL (0.0-0.5); HEMATOCRIT 42.7 % (42.0-52.0); HEMOGLOBIN 13.9 g/dl (13.5-17.5); LYMPH # 1.8 10^3/uL (1.5-5.0); LYMPH % 21.9 % (24.0-44.0); MEAN CORPUSCULAR HEMOGLOBIN 31.3 pg (27.0-33.0); MEAN CORPUSCULAR HGB CONC 32.6 g/dl (32.0-36.5); MEAN CORPUSCULAR VOLUME 96.2 fl (80.0-96.0); MONO # 0.7 10^3/uL (0.0-0.8); MONO % 8.1 % (0.0-5.0); NEUTROPHILS # 5.4 10^3/uL (1.5-8.5); NEUTROPHILS % 65.6 % (36.0-66.0); PLATELET COUNT, AUTOMATED 209 10^3/uL (150-450); RED BLOOD COUNT 4.44 10^6/uL (4.30-6.10); WHITE BLOOD COUNT 8.3 10^3/uL (4.0-10.0)
[2019-07-03 18:19] LABS: ERYTHROCYTE SEDIMENTATION RATE 32 mm/hr (0-20)
== END ==
LOC: M PLALAB 12:27
PROVIDERS: ATTEND Family Medicine
DX: M25.531 Pain in right wrist (principal); L03.113 Cellulitis of right upper limb

== ENCOUNTER → 2019-12-05 | Outpatient (REF) | payer OTHER ==
[~2019-12-05] MED LIST changes: -LISI-672; +LISI30TA4; -METF-791 PO; +METF-838 PO
[2019-12-05 15:39] LABS: ALBUMIN 3.8 GM/DL (3.2-5.2); ALT/SGPT 36 U/L (12-78); BILIRUBIN,TOTAL 0.5 MG/DL (0.2-1.0); BLOOD UREA NITROGEN 19 MG/DL (7-18); CALCIUM LEVEL 9.2 MG/DL (8.8-10.2); CARBON DIOXIDE LEVEL 23 MEQ/L (21-32); CHLORIDE LEVEL 110 MEQ/L (98-107); CHOLESTEROL LEVEL 246 MG/DL (<200); CHOLESTEROL RISK RATIO 6.473 (<5); CREATININE FOR GFR 1.06 MG/DL (0.70-1.30); GLOMERULAR FILTRATION RATE > 60.0 (>49); GLUCOSE, FASTING 177 MG/DL (70-100); HDL CHOLESTEROL 38 MG/DL (>40); LDL CHOLESTEROL 147 MG/DL (<100); NON-HDL-C 208 MG/DL; POTASSIUM SERUM 4.7 MEQ/L (3.5-5.1); SODIUM LEVEL 138 MEQ/L (136-145); TOTAL PROTEIN 7.3 GM/DL (6.4-8.2); TRIGLYCERIDES LEVEL 303 MG/DL (<150)
[2019-12-05 15:55] LABS: HEMOGLOBIN A1c 7.9 %
[2019-12-05 16:12] LABS: MALB URINE SIEMENS 20.6 MG/L; MAU/CREAT RATIO 15.8 MCG/MG (0.0-30.0)
== END ==
LOC: M SFHCPLAZ 13:33
PROVIDERS: ATTEND Family Medicine
DX: I10 Essential (primary) hypertension (principal); E78.2 Mixed hyperlipidemia; E11.9 Type 2 diabetes mellitus without complications

== ENCOUNTER → 2019-12-15 | Outpatient (CLI) | payer OTHER ==
[~2019-12-15] MED LIST changes: +PROHANCE 279.3MG/ML 15ML VIAL As Ordered ONE; +PROHANCE 279.3MG/ML 5ML VIAL As Ordered ONE
--- NOTE | 2019-12-15 17:42 | REPVR ---
PROCEDURE INFORMATION: Exam: MR Angiography Neck Without and With Contrast Exam date and time: 12/15/2019 4:11 PM Age: 64 years old Clinical indication: Dizziness and giddiness; Patient HX: Dizziness after extension of neck TECHNIQUE: Imaging protocol: Magnetic resonance angiography of the neck without and with intravenous contrast. 3D rendering: MIP and/or 3D reconstructed images were created by the technologist. Contrast material: PROHANCE; Contrast volume: 25 ml; Contrast route: INTRAVENOUS (IV); COMPARISON: No relevant prior studies available. FINDINGS: Right common carotid artery: No stenosis. No dissection or occlusion. Right internal carotid artery: No stenosis of the extracranial segment. No dissection or occlusion. Right external carotid artery: No stenosis. No dissection or occlusion of the origin. Right vertebral artery: No stenosis. No dissection or occlusion. Left common carotid artery: No stenosis. No dissection or occlusion. Left internal carotid artery: Transverse lines of absent signal in the left distal common carotid artery and proximal left internal and external carotid arterys likely represents misregistration artifact. Correlation with carotid ultrasound would be helpful. Left external carotid artery: No stenosis. No dissection or occlusion of the origin. Left vertebral artery: Dominant left vertebral artery. IMPRESSION: 1. Probable misregistration artifact in the left distal common carotid artery, proximal left internal and external carotid arterys. Correlation with carotid ultrasound would be helpful if clinically desired. 2. Right carotid artery unremarkable. 3. Dominant left vertebral artery. Vertebral arteries otherwise unremarkable. REFERENCES: NASCET CRITERIA. The degree of internal carotid artery stenosis is based on NASCET criteria. Normal is no stenosis. Mild is less than 50% stenosis. Moderate is 50-69% stenosis. Severe is 70% to 99% stenosis. Total occlusion is no detectable patent lumen. Electronically signed by: Juwan Mclaughlin On 12/15/2019 17:42:07 PM
== END ==
LOC: M RAD 13:59
PROVIDERS: ATTEND Family Medicine
DX: R42 Dizziness and giddiness (principal)
CPT/HCPCS: 70549; A9576

== ENCOUNTER → 2020-11-30 | Outpatient (CLI) | payer OTHER ==
[~2020-11-30] MED LIST changes: +GABA-282; -GABA-843; +LISI10TA22 PO; -LISI10TA4 PO; -PROHANCE 279.3MG/ML 15ML VIAL As Ordered ONE; -PROHANCE 279.3MG/ML 5ML VIAL As Ordered ONE
== END ==
LOC: M PLALAB 12:16
PROVIDERS: ATTEND Urology
DX: R97.20 Elevated prostate specific antigen [PSA] (principal)

== ENCOUNTER → 2021-02-01 | Outpatient (CLI) | payer OTHER ==
[2021-02-01 15:49] LABS: BLOOD UREA NITROGEN 25 MG/DL (7-18); CALCIUM LEVEL 9.2 MG/DL (8.8-10.2); CARBON DIOXIDE LEVEL 26 MEQ/L (21-32); CHLORIDE LEVEL 106 MEQ/L (98-107); CHOLESTEROL LEVEL 276 MG/DL (<200); GLOMERULAR FILTRATION RATE > 60.0 (>49); GLUCOSE, FASTING 176 MG/DL (70-100); HDL CHOLESTEROL 40 MG/DL (>40); LDL CHOLESTEROL 194 MG/DL (<100); NON-HDL-C 236 MG/DL; POTASSIUM SERUM 4.9 MEQ/L (3.5-5.1); SODIUM LEVEL 138 MEQ/L (136-145); TRIGLYCERIDES LEVEL 210 MG/DL (<150)
[2021-02-01 15:54] LABS: MALB URINE SIEMENS 52.5 MG/L; MAU/CREAT RATIO 36.9 MCG/MG (0.0-30.0)
[2021-02-01 16:00] LABS: HEMOGLOBIN A1c 7.8 %
== END ==
LOC: M PLALAB 11:44
PROVIDERS: ATTEND Family Medicine
DX: E11.9 Type 2 diabetes mellitus without complications (principal); E78.2 Mixed hyperlipidemia; I10 Essential (primary) hypertension

== ENCOUNTER → 2021-08-11 | Outpatient (CLI) | payer OTHER | LOC: M RAD 09:30 | PROVIDERS: ATTEND Family Medicine | DX: R51.9 Headache, unspecified (principal); I72.0 Aneurysm of carotid artery; J34.1 Cyst and mucocele of nose and nasal sinus ==

== ENCOUNTER → 2021-08-29 | Outpatient (REF) | payer OTHER | LOC: M SFHCPLAZ 15:03 | PROVIDERS: ATTEND Family Medicine | DX: B34.9 Viral infection, unspecified (principal) ==

== ENCOUNTER → 2021-10-06 | Outpatient (REF) | payer OTHER | LOC: M SFHCPLAZ 16:49 | PROVIDERS: ATTEND Family Medicine | DX: R05.9 Cough, unspecified (principal) ==

== ENCOUNTER → 2021-12-02 | Outpatient (CLI) | payer OTHER ==
[2021-12-02 13:53] LABS: ALBUMIN 3.9 GM/DL (3.2-5.2); ALT/SGPT 38 U/L (12-78); BILIRUBIN,TOTAL 0.2 MG/DL (0.2-1.0); BLOOD UREA NITROGEN 22 MG/DL (7-18); CALCIUM LEVEL 10.1 MG/DL (8.8-10.2); CARBON DIOXIDE LEVEL 23 MEQ/L (21-32); CHLORIDE LEVEL 109 MEQ/L (98-107); CHOLESTEROL LEVEL 261 MG/DL (<200); CHOLESTEROL RISK RATIO 6.692 (<5); CREATININE FOR GFR 1.04 MG/DL (0.70-1.30); GLOMERULAR FILTRATION RATE > 60.0 (>49); GLUCOSE, FASTING 182 MG/DL (70-100); HDL CHOLESTEROL 39 MG/DL (>40); LDL CHOLESTEROL 172 MG/DL (<100); NON-HDL-C 222 MG/DL; POTASSIUM SERUM 4.9 MEQ/L (3.5-5.1); SODIUM LEVEL 140 MEQ/L (136-145); TOTAL PROTEIN 7.4 GM/DL (6.4-8.2); TRIGLYCERIDES LEVEL 248 MG/DL (<150)
[2021-12-02 13:59] LABS: CREATININE, URINE 93.6 MG/DL; MAU/CREAT RATIO 54.4 MCG/MG (0.0-30.0)
[2021-12-02 14:24] LABS: HEMOGLOBIN A1c 7.7 %
== END ==
LOC: M PLALAB 12:06
PROVIDERS: ATTEND Physician Assistant
DX: E11.9 Type 2 diabetes mellitus without complications (principal)

== ENCOUNTER → 2021-12-20 | Outpatient (CLI) | payer OTHER | LOC: M PLALAB 09:51 | PROVIDERS: ATTEND Physician Assistant | DX: M54.41 Lumbago with sciatica, right side (principal); M47.817 Spondylosis without myelopathy or radiculopathy, lumbosacral region ==

== ENCOUNTER → 2022-03-30 | Outpatient (REF) | payer OTHER | LOC: M SFHCPLAZ 11:02 | PROVIDERS: ATTEND Physician Assistant | DX: E11.9 Type 2 diabetes mellitus without complications (principal); Z53.9 Procedure and treatment not carried out, unspecified reason ==

== ENCOUNTER → 2022-03-30 | Outpatient (CLI) | payer OTHER ==
[2022-03-30 15:25] LABS: ALBUMIN 3.7 GM/DL (3.2-5.2); ALT/SGPT 39 U/L (12-78); BILIRUBIN,TOTAL 0.2 MG/DL (0.2-1.0); BLOOD UREA NITROGEN 20 MG/DL (7-18); CALCIUM LEVEL 8.8 MG/DL (8.8-10.2); CARBON DIOXIDE LEVEL 25 MEQ/L (21-32); CHLORIDE LEVEL 108 MEQ/L (98-107); CREATININE FOR GFR 1.02 MG/DL (0.70-1.30); GLOMERULAR FILTRATION RATE > 60.0 (>49); GLUCOSE, FASTING 207 MG/DL (70-100); POTASSIUM SERUM 4.6 MEQ/L (3.5-5.1); SODIUM LEVEL 138 MEQ/L (136-145); TOTAL PROTEIN 7.2 GM/DL (6.4-8.2)
[2022-03-30 16:10] LABS: HEMOGLOBIN A1c 8.3 %
== END ==
LOC: M PLALAB 11:08
PROVIDERS: ATTEND Physician Assistant
DX: E11.9 Type 2 diabetes mellitus without complications (principal)

== ENCOUNTER → 2022-12-04 | Outpatient (CLI) | payer OTHER | LOC: M PLALAB 12:07 | PROVIDERS: ATTEND Urology | DX: N40.1 Benign prostatic hyperplasia with lower urinary tract symptoms (principal) ==

== ENCOUNTER → 2023-01-16 | Outpatient (CLI) | payer OTHER ==
[2023-01-16 15:50] LABS: BASO % 0.6 % (0.0-1.0); EOS # 0.2 10^3/uL (0.0-0.5); EOS % 2.6 % (0.0-3.0); HEMATOCRIT 39.2 % (42.0-52.0); LYMPH # 1.9 10^3/uL (1.5-5.0); LYMPH % 29.2 % (24.0-44.0); MEAN CORPUSCULAR HGB CONC 33.2 g/dl (32.0-36.5); MEAN CORPUSCULAR VOLUME 96.6 fl (80.0-96.0); MONO # 0.6 10^3/uL (0.0-0.8); MONO % 9.3 % (2.0-8.0); NEUTROPHILS # 3.8 10^3/uL (1.5-8.5); NEUTROPHILS % 57.8 % (36.0-66.0); PLATELET COUNT, AUTOMATED 156 10^3/uL (150-450); RED BLOOD COUNT 4.06 10^6/uL (4.30-6.10); WHITE BLOOD COUNT 6.5 10^3/uL (4.0-10.0)
[2023-01-16 16:10] LABS: URIC ACID 7.4 MG/DL (3.7-9.2)
[2023-01-16 16:15] LABS: ALBUMIN 3.8 G/DL (3.2-5.2); ALKALINE PHOSPHATASE 67 U/L (46-116); ALT/SGPT 35 U/L (7.0-40); AST/SGOT 13 U/L (<34); BILIRUBIN,TOTAL 0.3 MG/DL (0.3-1.2); BLOOD UREA NITROGEN 22 MG/DL (9-23); CARBON DIOXIDE LEVEL 24 MMOL/L (20-31); CHLORIDE LEVEL 104 MMOL/L (98-107); CHOLESTEROL LEVEL 255 MG/DL (<200); CHOLESTEROL RISK RATIO 6.37 (<5); CREATININE FOR GFR 0.81 MG/DL (0.70-1.30); GLOMERULAR FILTRATION RATE > 60.0 (>49); GLUCOSE, FASTING 195 MG/DL (74-106); LDL CHOLESTEROL 143.4 MG/DL (<100); POTASSIUM SERUM 4.8 MMOL/L (3.5-5.1); SODIUM LEVEL 137 MMOL/L (136-145); TRIGLYCERIDES LEVEL 358 MG/DL (<150)
[2023-01-16 16:26] LABS: HEMOGLOBIN A1c 8.7 % (4.0-6.0)
== END ==
LOC: M PLALAB 13:22
PROVIDERS: ATTEND Physician Assistant
DX: M10.9 Gout, unspecified (principal); E11.9 Type 2 diabetes mellitus without complications; I10 Essential (primary) hypertension; E78.2 Mixed hyperlipidemia

== ENCOUNTER → 2023-05-17 | Outpatient (CLI) | payer OTHER | LOC: M WUC 11:29 | PROVIDERS: ATTEND Nurse Practitioner Family | DX: M25.561 Pain in right knee (principal); M25.461 Effusion, right knee ==

== ENCOUNTER → 2023-08-03 | Outpatient (CLI) | payer OTHER ==
[2023-08-03 15:53] LABS: BASO % 0.5 % (0.0-1.0); EOS # 0.2 10^3/uL (0.0-0.5); EOS % 1.9 % (0.0-3.0); HEMATOCRIT 38.8 % (42.0-52.0); HEMOGLOBIN 13.1 g/dl (13.5-17.5); LYMPH # 1.9 10^3/uL (1.5-5.0); LYMPH % 22.1 % (24.0-44.0); MEAN CORPUSCULAR HGB CONC 33.8 g/dl (32.0-36.5); MEAN CORPUSCULAR VOLUME 94.6 fl (80.0-96.0); MONO # 0.6 10^3/uL (0.0-0.8); MONO % 6.5 % (2.0-8.0); NEUTROPHILS # 5.8 10^3/uL (1.5-8.5); NEUTROPHILS % 68.5 % (36.0-66.0); PLATELET COUNT, AUTOMATED 156 10^3/uL (150-450); WHITE BLOOD COUNT 8.5 10^3/uL (4.0-10.0)
[2023-08-03 15:55] LABS: ALBUMIN 3.6 G/DL (3.2-5.2); ALKALINE PHOSPHATASE 70 U/L (46-116); ALT/SGPT 31 U/L (7.0-40); AST/SGOT 14 U/L (<34); BILIRUBIN,TOTAL 0.3 MG/DL (0.3-1.2); BLOOD UREA NITROGEN 28 MG/DL (9-23); CALCIUM LEVEL 9.2 MG/DL (8.3-10.6); CARBON DIOXIDE LEVEL 26 MMOL/L (20-31); CHLORIDE LEVEL 105 MMOL/L (98-107); CHOLESTEROL LEVEL 246 MG/DL (<200); CHOLESTEROL RISK RATIO 5.55 (<5); CREATININE FOR GFR 0.93 MG/DL (0.70-1.30); GLOMERULAR FILTRATION RATE > 60.0 (>49); GLUCOSE, FASTING 144 MG/DL (74-106); HDL CHOLESTEROL 44.3 MG/DL (>40); LDL CHOLESTEROL 150.1 MG/DL (<100); NON-HDL-C 201.7 MG/DL; POTASSIUM SERUM 4.7 MMOL/L (3.5-5.1); PSA SCREENING 0.45 NG/ML (< 4.00); SODIUM LEVEL 136 MMOL/L (136-145); TOTAL PROTEIN 6.5 G/DL (5.7-8.2); TRIGLYCERIDES LEVEL 258 MG/DL (<150)
[2023-08-03 15:59] LABS: FREE T4 1.14 NG/DL (0.89-1.76); THYROID STIMULATING HORMONE 1.122 uIU/ML (0.55-4.78)
== END ==
LOC: M PLAIMG 13:17
PROVIDERS: ATTEND Physician Assistant
DX: M54.41 Lumbago with sciatica, right side (principal); M47.896 Other spondylosis, lumbar region; I10 Essential (primary) hypertension; E11.9 Type 2 diabetes mellitus without complications; E78.2 Mixed hyperlipidemia; Z12.5 Encounter for screening for malignant neoplasm of prostate; M50.30 Other cervical disc degeneration, unspecified cervical region
CPT/HCPCS: 36415; 72052; 72110; 72202; 80053; 80061; 83036; 84439; 84443; 85025; G0103

== ENCOUNTER → 2023-12-12 | Outpatient (CLI) | payer MEDICARE, OTHER ==
[~2023-12-12] MED LIST changes: +GABA-282 PO; +GLIP10TA18 PO; +ROSU10TA61 PO; +ZOLO100T PO
== END ==
LOC: M PLAIMG 08:38
PROVIDERS: ATTEND Physician Assistant
DX: M54.2 Cervicalgia (principal); M47.812 Spondylosis without myelopathy or radiculopathy, cervical region; M48.02 Spinal stenosis, cervical region

== ENCOUNTER 2024-03-17 06:44 | Day surgery (SDC) | payer MEDICARE, OTHER ==
[~2024-03-17] VITALS: Ht 177.8 cm; Wt 99.1 kg
[~2024-03-17 06:44] MED LIST changes: +FEXO-112 PO; +GABA-1172; +GABA-1172 PO; -GABA-282; -GABA-282 PO; +GLIP5TAB20 PO; +LANS30CA93 PO; +NS 250 ML IV ONE
[2024-03-17] MEDS ORDERED: fentaNYL 100 MCG/2 ML INJECTION As Ordered ONE (07:12)
[2024-03-17] MEDS ORDERED: propofoL 500 MG/50 ML VIAL As Ordered ONE (07:13)
[2024-03-17] MEDS ORDERED: LIDOCAINE 2% 100MG/5ML SDV (FOR ANES.) As Ordered ONE (07:13)
[2024-03-17] MEDS ORDERED: PHENYLephrine 500MCG 5ML (100MCG/ML) SYRINGE As Ordered ONE (08:25)
[2024-03-17 08:45] VITALS: TEMP 97.9
[2024-03-17 09:00] VITALS: BP 109/61; O2SAT 96
== END 2024-03-17 09:01 | disposition home or self-care (01) ==
LOC: M OPP 06:44
PROVIDERS: ATTEND Internal Medicine Gastroenterology
DX: Z12.11 Encounter for screening for malignant neoplasm of colon (principal); K64.0 First degree hemorrhoids; K57.30 Diverticulosis of large intestine without perforation or abscess without bleeding; K20.90 Esophagitis, unspecified without bleeding; K44.9 Diaphragmatic hernia without obstruction or gangrene; K22.89 Other specified disease of esophagus; R12 Heartburn; Z86.0100 Personal history of colon polyps, unspecified; Z87.19 Personal history of other diseases of the digestive system; E11.40 Type 2 diabetes mellitus with diabetic neuropathy, unspecified; I10 Essential (primary) hypertension; E78.00 Pure hypercholesterolemia, unspecified; N40.0 Benign prostatic hyperplasia without lower urinary tract symptoms; M10.9 Gout, unspecified; Z86.73 Personal history of transient ischemic attack (TIA), and cerebral infarction without residual deficits; Z79.899 Other long term (current) drug therapy; Z79.02 Long term (current) use of antithrombotics/antiplatelets; Z91.041 Radiographic dye allergy status; Z87.891 Personal history of nicotine dependence
CPT/HCPCS: 43239; 88305; G0105; J2371; J3010

== ENCOUNTER → 2024-04-03 | Outpatient (CLI) | payer MEDICARE, OTHER ==
[~2024-04-03] MED LIST changes: -NS 250 ML IV ONE
[2024-04-03 18:56] LABS: HEMATOCRIT 38.3 % (42.0-52.0); MEAN CORPUSCULAR HEMOGLOBIN 32.3 pg (27.0-33.0); MEAN CORPUSCULAR HGB CONC 33.9 g/dl (32.0-36.5); MEAN CORPUSCULAR VOLUME 95.3 fl (80.0-96.0); PLATELET COUNT, AUTOMATED 162 10^3/uL (150-450); RED BLOOD COUNT 4.02 10^6/uL (4.30-6.10); WHITE BLOOD COUNT 6.2 10^3/uL (4.0-10.0)
[2024-04-03 18:59] LABS: ALBUMIN 3.7 G/DL (3.2-5.2); ALKALINE PHOSPHATASE 82 U/L (40-129); ALT/SGPT 28 U/L (7.0-40); AST/SGOT 10 U/L (<34); BILIRUBIN,TOTAL 0.3 MG/DL (0.3-1.2); BLOOD UREA NITROGEN 18 MG/DL (9-23); CALCIUM LEVEL 9.7 MG/DL (8.3-10.6); CARBON DIOXIDE LEVEL 23 MMOL/L (20-31); CHLORIDE LEVEL 109 MMOL/L (98-107); CREATININE FOR GFR 0.72 MG/DL (0.70-1.30); GLOMERULAR FILTRATION RATE > 60.0 (>49); GLUCOSE, FASTING 175 MG/DL (74-106); POTASSIUM SERUM 4.8 MMOL/L (3.5-5.1); SODIUM LEVEL 139 MMOL/L (136-145); TOTAL PROTEIN 7.3 G/DL (5.7-8.2)
== END ==
LOC: M PLALAB 14:54
DX: Z01.818 Encounter for other preprocedural examination (principal)

== ENCOUNTER → 2024-07-04 | Outpatient (CLI) | payer MEDICARE, OTHER ==
[2024-07-04 18:59] LABS: HEMATOCRIT 39.5 % (42.0-52.0); HEMOGLOBIN 12.9 g/dl (13.5-17.5); MEAN CORPUSCULAR HEMOGLOBIN 31.7 pg (27.0-33.0); MEAN CORPUSCULAR HGB CONC 32.7 g/dl (32.0-36.5); MEAN CORPUSCULAR VOLUME 97.1 fl (80.0-96.0); PLATELET COUNT, AUTOMATED 176 10^3/uL (150-450); RED BLOOD COUNT 4.07 10^6/uL (4.30-6.10); WHITE BLOOD COUNT 6.3 10^3/uL (4.0-10.0)
[2024-07-04 19:24] LABS: HEMOGLOBIN A1c 7.5 % (4.0-6.0)
[2024-07-04 19:25] LABS: PSA SCREENING 0.74 NG/ML (< 4.00)
[2024-07-04 19:27] LABS: URIC ACID 7.3 MG/DL (3.7-9.2)
[2024-07-04 19:28] LABS: THYROID STIMULATING HORMONE 0.952 uIU/ML (0.55-4.78)
[2024-07-04 19:29] LABS: FREE T4 1.24 NG/DL (0.89-1.76)
[2024-07-04 19:31] LABS: ALBUMIN 3.9 G/DL (3.2-5.2); ALKALINE PHOSPHATASE 78 U/L (40-129); ALT/SGPT 29 U/L (7.0-40); AST/SGOT 16 U/L (<34); BILIRUBIN,TOTAL 0.4 MG/DL (0.3-1.2); BLOOD UREA NITROGEN 23 MG/DL (9-23); CALCIUM LEVEL 9.7 MG/DL (8.3-10.6); CARBON DIOXIDE LEVEL 24 MMOL/L (20-31); CHLORIDE LEVEL 107 MMOL/L (98-107); CHOLESTEROL LEVEL 246 MG/DL (<200); CHOLESTEROL RISK RATIO 5.46 (<5); CREATININE FOR GFR 0.87 MG/DL (0.70-1.30); GLOMERULAR FILTRATION RATE > 60.0 (>49); GLUCOSE, FASTING 120 MG/DL (74-106); LDL CHOLESTEROL 166.2 MG/DL (<100); POTASSIUM SERUM 5.3 MMOL/L (3.5-5.1); SODIUM LEVEL 142 MMOL/L (136-145); TOTAL PROTEIN 7.3 G/DL (5.7-8.2); TRIGLYCERIDES LEVEL 174 MG/DL (<150)
== END ==
LOC: M PLALAB 14:54
DX: E78.2 Mixed hyperlipidemia (principal); I10 Essential (primary) hypertension; M10.9 Gout, unspecified; Z12.5 Encounter for screening for malignant neoplasm of prostate; Z79.899 Other long term (current) drug therapy
CPT/HCPCS: 36415; 80053; 80061; 83036; 84439; 84443; 84550; 85027; G0103

== ENCOUNTER → 2024-12-22 | Outpatient (REF) | payer MEDICARE, OTHER ==
[~2024-12-22] MED LIST changes: +GLIP-318 PO; +GLIP-320 PO; -GLIP10TA18 PO; +GLIP2.5T46; -GLIP2.5T6; -GLIP5TAB20 PO; -PRAV40TA2 PO; +PRAV40TA85 PO
[2024-12-22 18:40] LABS: IRON (FE) 77.0 UG/DL (65-175); PERCENT SATURATION 23.0 % (19.7-50.0)
[2024-12-22 18:41] LABS: ALT/SGPT 34.0 U/L (7.0-40); AST/SGOT 18.0 U/L (<34); CALCIUM LEVEL 9.3 MG/DL (8.3-10.6); CARBON DIOXIDE LEVEL 24.0 MMOL/L (20-31); CHLORIDE LEVEL 107.0 MMOL/L (98-107); CREATININE FOR GFR 1.0 MG/DL (0.70-1.30); GLOMERULAR FILTRATION RATE 82.0 (>49); MAGNESIUM LEVEL 1.2 MG/DL (1.8-2.4); POTASSIUM SERUM 4.6 MMOL/L (3.5-5.1); SODIUM LEVEL 143.0 MMOL/L (136-145)
[2024-12-22 18:44] LABS: FREE T4 1.13 NG/DL (0.89-1.76)
[2024-12-22 18:46] LABS: BASO # 0.0 10^3/uL (0.0-0.2); BASO % 0.5 % (0.0-1.0); EOS # 0.1 10^3/uL (0.0-0.5); EOS % 1.6 % (0.0-3.0); LYMPH # 1.7 10^3/uL (1.5-5.0); LYMPH % 21.2 % (24.0-44.0); MONO # 0.6 10^3/uL (0.0-0.8); MONO % 7.9 % (2.0-8.0); NEUTROPHILS # 5.5 10^3/uL (1.5-8.5); NEUTROPHILS % 68.3 % (36.0-66.0); PLATELET COUNT, AUTOMATED 181 10^3/uL (150-450)
[2024-12-22 18:48] LABS: VITAMIN B12 LEVEL 418.0 PG/ML (211-911)
[2024-12-22 19:44] LABS: ESTIMATED AVERAGE GLUCOSE 148.0 MG/DL (60-110)
== END ==
LOC: M SFHCADAM 14:08
PROVIDERS: ATTEND Physician Assistant
DX: E11.9 Type 2 diabetes mellitus without complications (principal); I10 Essential (primary) hypertension; M10.9 Gout, unspecified; Z86.73 Personal history of transient ischemic attack (TIA), and cerebral infarction without residual deficits; D64.9 Anemia, unspecified; E78.00 Pure hypercholesterolemia, unspecified

== ENCOUNTER 2024-12-25 10:43 | Emergency (ER) | payer OTHER, MEDICARE ==
[~2024-12-25] VITALS: Ht 177.8 cm; Wt 98.7 kg
[2024-12-25] MEDS ORDERED: LIDO1ADH93 TOP (12:59)
[2024-12-25] MEDS: LIDOCAINE 5% PATCH TD ONE (12:59)
[2024-12-25 13:10] VITALS: BP 117/69; TEMP 96.9; O2SAT 100
== END 2024-12-25 13:12 | disposition home or self-care (01) ==
LOC: M ED 10:43
DX: S22.32XA Fracture of one rib, left side, initial encounter for closed fracture (principal); W19.XXXA Unspecified fall, initial encounter; Y92.89 Other specified places as the place of occurrence of the external cause; Y93.02 Activity, running; Y99.9 Unspecified external cause status; I10 Essential (primary) hypertension; E78.5 Hyperlipidemia, unspecified; K21.9 Gastro-esophageal reflux disease without esophagitis; K22.70 Barrett's esophagus without dysplasia; Z91.041 Radiographic dye allergy status; Z79.899 Other long term (current) drug therapy

== ENCOUNTER → 2025-01-05 | Outpatient (REF) | payer MEDICARE, OTHER ==
[~2025-01-05] MED LIST changes: +LIDO1ADH93 TOP
== END ==
LOC: M SFHCADAM 12:15
PROVIDERS: ATTEND Physician Assistant
DX: E83.42 Hypomagnesemia (principal)

== ENCOUNTER → 2025-03-06 | Outpatient (CLI) | payer MEDICARE, OTHER ==
[~2025-03-06] MED LIST changes: -ROSU10TA61 PO; +ROSU10TA90 PO
== END ==
LOC: M WUC 11:51
DX: M79.672 Pain in left foot (principal); M19.072 Primary osteoarthritis, left ankle and foot

== ENCOUNTER → 2025-03-20 | Outpatient (REF) | payer MEDICARE, OTHER ==
[~2025-03-20] MED LIST changes: +ROSU10TA61 PO; -ROSU10TA90 PO
[2025-03-20 17:32] LABS: CALCIUM LEVEL 9.5 MG/DL (8.3-10.6); CARBON DIOXIDE LEVEL 26.0 MMOL/L (20-31); CHLORIDE LEVEL 108.0 MMOL/L (98-107); CREATININE FOR GFR 0.97 MG/DL (0.70-1.30); GLOMERULAR FILTRATION RATE 85.0 (>49); MAGNESIUM LEVEL 1.4 MG/DL (1.8-2.4); POTASSIUM SERUM 5.4 MMOL/L (3.5-5.1); SODIUM LEVEL 144.0 MMOL/L (136-145)
[2025-03-20 18:02] LABS: ESTIMATED AVERAGE GLUCOSE 120.0 MG/DL (60-110)
== END ==
LOC: M SFHCADAM 14:34
PROVIDERS: ATTEND Physician Assistant
DX: E11.9 Type 2 diabetes mellitus without complications (principal); E83.42 Hypomagnesemia; M1A.0720 Idiopathic chronic gout, left ankle and foot, without tophus (tophi)